=== PATIENT | female | born 1995 | race Caucasian/White ===

== ENCOUNTER 2017-10-15 17:07 | Outpatient (CLI) | END 2017-10-15 18:12 | disposition home or self-care (01) ==

== ENCOUNTER 2017-11-05 17:35 | Outpatient (CLI) | END 2017-11-05 21:37 | disposition home or self-care (01) ==

== ENCOUNTER 2017-11-09 12:40 | Outpatient (CLI) | END 2017-11-09 14:30 | disposition home or self-care (01) ==

== ENCOUNTER 2017-11-12 16:12 | Inpatient (IN) | END 2017-11-16 15:49 | disposition home or self-care (01) | DRG 775 ==

== ENCOUNTER 2018-09-26 23:19 | Emergency (ER) | payer OTHER ==
[~2018-09-26] VITALS: Ht 172.7 cm; Wt 75.9 kg
[~2018-09-26 23:19] MED LIST: IBUP-1542 PO; PNV11TAB PO; PREN1TAB79 PO
[2018-09-26 23:24] VITALS: Ht 172.7 cm; Wt 75.9 kg
[2018-09-27] MEDS ORDERED: ACETAMINOPHEN 500 MG TAB PO STA (02:13)
[2018-09-27] MEDS ORDERED: CEPH-443 PO (02:17)
[2018-09-27] MEDS ORDERED: ACET500C5 PO (02:18)
[2018-09-27] MEDS ORDERED: IBUP-1542 PO (02:18)
[2018-09-27] MEDS ORDERED: LIDOCAINE 1% (MPF) 5 ML VIAL INFIL ONE (02:30)
[2018-09-27] MEDS ORDERED: CEFTRIAXONE 1 GM INJ IM ONE (02:30)
[2018-09-27 03:22] VITALS: BP 106/76; PULSE 101; RESP 16
--- NOTE | 2018-09-29 14:15 | ERD ---
ER Documentation Chief Complaint Chief Complaint R BREAST PAIN X'S 2 DAYS; HX OF MASTITIS HPI History of Present Illness: 30-year-old female who denies a past medical history coming in today with complaint of right breast pain for 2 days. Patient reports diagnosis of mastitis in the past. Patient is still currently breast-feedinG. At home pharmacological/nonpharmacological treatment for symptoms: Denies Denies social concerns; Denies recent foreign travel ROS All systems reviewed and are negative except as per history of present illness. Medications Home Meds Active Scripts Ibuprofen* (Motrin*) 600 Mg Tab, 600 MG PO Q6H PRN for PAIN AND/OR INFLAMMATION, #30 TAB Prov:MORGAN BELLE V [employer] 09/27/18 Acetaminophen* (Tylophen*) 500 Mg Capsule, 2 CAP PO Q6H PRN for PAIN AND OR ELEVATED TEMP, #30 CAP Prov:MORGAN BELLE V [employer] 09/27/18 Cephalexin* (Keflex*) 500 Mg Capsule, 500 MG PO QID for MASTITIS for 10 Days, CAP Prov:MORGAN BELLE NP 09/27/18 Ibuprofen* (Ibuprofen*) 600 Mg Tablet, 600 MG PO Q6, #60 TAB 0 Refills Prov:PARKER RUIZ MD 11/15/17 Reported Medications [id number] ( 19) 1 Each Tablet, 1 TAB PO DAILY, TAB 11/09/17 Vit W-Ca,Fe,FA(<1 mg) ( Vitamins) 1 Each Tablet, 1 EACH PO DAILY, TAB 11/05/17 Allergies Allergies: Coded Allergies: No Known Allergy (Unverified , 10/15/17) PMhx/Soc Medical and Surgical Hx: pt denies Medical Hx, pt denies Surgical Hx Hx Alcohol Use: No Hx Substance Use: No Hx Tobacco Use: No Smoking Status: Never smoker FmHx Family History: No diabetes, No coronary disease Physical Exam Vitals Vital Signs Date Temp Pulse Resp B/P (MAP) Pulse Ox O2 O2 Flow FiO2 Time Delivery Rate 09/27/18 98.6 101 16 106/76 99 Room Air 03:22 (86) 09/26/18 99.3 101 18 130/85 99 23:24 (100) Physical Exam Const: No acute distress, afebrile Head: Atraumatic Eyes: Normal Conjunctiva ENT: Normal External Ears, Nose and Mouth. Neck: Full range of motion. No meningismus. Resp: Clear to auscultation bilaterally Cardio: Regular rate and rhythm, no murmurs Abd: Soft, non tender, non distended. No guarding, no masses, no rigidity Skin: No petechiae or rashes Back: No midline or flank tenderness Ext: No cyanosis, or edema Neur: Awake and alert x3, speaking in clear sentences, no focal deficits or facial asymmetry Psych: Normal Mood and Affect Breasts: Erythema noted to right breast AT 9 o'clock. No palpable abscesses or masses. No skin changes. No nipple inversion. Results 24 hrs Current Medications Medications Dose Sig/Ana M Start Time Status Last (Trade) Ordered Route PRN Stop Time Admin Dose Reason Admin 1,000 mg ONCE STAT 09/27/18 DC 09/27/18 Acetaminophen PO 02:13 09/27/18 02:37 (Tylenol 02:15 Tab) Ceftriaxone 1 gm ONCE ONCE 09/27/18 DC 09/27/18 Sodium IM 02:30 09/27/18 02:37 (Rocephin) 02:31 Lidocaine 2.1 ml ONCE ONCE 09/27/18 DC 09/27/18 (Xylocaine INFIL 02:30 09/27/18 02:37 1% (Mpf)) 02:31 Procedures/MDM ED COURSE: ED course includes a thorough examination and history. The patient was stable throughout ED course. I kept the patient and/or family informed of laboratory and diagnostic imaging results throughout the ED course. LABS: None MEDICATIONS GIVEN IN ER: Ceftriaxone, acetaminophen Patient tolerated medication well with no adverse reactions. Patient reported improvement in pain. DIAGNOSTIC IMAGING: None. PROCEDURES: None. MEDICAL DECISION MAKING: Low suspicion for life-threatening medical emergency. Otherwise healthy patient presenting with constellation of symptoms likely representing right-sided mastitis as characterized by history, physical exam findings. Patient reassessment @ 0240: Patient medicated as ordered. Patient hemodynamically stable. No respiratory distress, otherwise relatively well appearing and nontoxic. Disposition given. Patient educated on diagnoses, prescriptions, follow-up care, return precautions. Strict return precautions given for worsening condition; questions answered discharge. Patient verbalizes understanding of discharge instructions. PRESCRIPTIONS FOR HOME: Ibuprofen, acetaminophen, Keflex DISPOSITION: DISCHARGE At this time, patient is stable for discharge and outpatient management. I have instructed the patient to follow-up with his/her primary care physician in 1-2 days. I have discussed with the patient the possibility of needing to see a specialist for further workup and imaging studies if symptoms persist. I have instructed the patient to promptly return to the ER for any new or worsening symptoms including increased pain, fever, nausea, vomiting, weakness or LOC. The patient and/or family expressed understanding of and agreement with this plan. All questions were answered. Home care instructions were provided. DISCLAIMER: Inadvertent spelling and grammatical errors are likely due to EHR/dictation software use and do not reflect on the overall quality of patient care. Also, please note that the electronic time recorded on this note does not necessarily reflect the actual time of the patient encounter. Departure Diagnosis: Primary Impression: Mastitis, right, acute Condition: Stable Patient Instructions: Mastitis Referrals: [facility] YOU HAVE RECEIVED A MEDICAL SCREENING EXAM AND THE RESULTS INDICATE THAT YOU DO NOT HAVE A CONDITION THAT REQUIRES URGENT TREATMENT IN THE EMERGENCY DEPARTMENT. FURTHER EVALUATION AND TREATMENT OF YOUR CONDITION CAN WAIT UNTIL YOU ARE SEEN IN YOUR DOCTORS OFFICE WITHIN THE NEXT 1-2 DAYS. IT IS YOUR RESPONSIBILITY TO MAKE AN APPOINTMENT FOR FOLOW-UP CARE. IF YOU HAVE A PRIMARY DOCTOR --you should call your primary doctor and schedule an appointment IF YOU DO NOT HAVE A PRIMARY DOCTOR YOU CAN CALL OUR PHYSICIAN REFERRAL HOTLINE AT IF YOU CAN NOT AFFORD TO SEE A PHYSICIAN YOU CAN CHOSE FROM THE FOLLOWING [facility] CLINICS [facility] [address] [facility]. [facility] [address] [facility] [place] [address] [facility] [facility] [address] [facility]. [facility] [address] [facility]. [facility]. [address] [facility] YOU HAVE RECEIVED A MEDICAL SCREENING EXAM AND THE RESULTS INDICATE THAT YOU DO NOT HAVE A CONDITION THAT REQUIRES URGENT TREATMENT IN THE EMERGENCY DEPARTMENT. FURTHER EVALUATION AND TREATMENT OF YOUR CONDITION CAN WAIT UNTIL YOU ARE SEEN IN YOUR DOCTORS OFFICE WITHIN THE NEXT 1-2 DAYS. IT IS YOUR RESPONSIBILITY TO MAKE AN APPOINTMENT FOR FOLOW-UP CARE. IF YOU HAVE A PRIMARY DOCTOR --you should call your primary doctor and schedule and appointment IF YOU DO NOT HAVE A PRIMARY DOCTOR YOU CAN CALL OUR PHYSICIAN REFERRAL HOTLINE AT . IF YOU CAN NOT AFFORD TO SEE A PHYSICIAN YOU CAN CHOSE FROM THE FOLLOWING [facility] INSTITUTIONS: [facility] [address] [place] [address] [facility] [address] [place] [address] [facility] + [facility] [address] [place] [address] Additional Instructions: Thank you very much for allowing us to participate in your care. Your health and safety is our top priority at [facility]. It is important to read all discharge instructions and education provided in your discharge packet. Call your primary care doctor TOMORROW for an appointment during the next 2-4 days and bring all the information and medications prescribed. Have prescriptions filled and follow precisely the directions on the label. -Cephalexin is an antibiotic; take this medication every day as listed on your prescription. You must complete the entire course of treatment that is listed on your prescription this is very important because it takes a certain number of days to kill the bacteria that is causing the infection. --Ibuprofen is a medication that will help with pain/inflammation. At the dosage of 600 to 800 mg, this will help with inflammation/swelling. Take this medication as prescribed. --Acetaminophen as a medication for pain and/or fever. Take this medication as needed for mild to moderate pain. This medication will not cause drowsiness. If the symptoms get worse and your provider is unavailable, return to the Emergency Department immediately. MORGAN BELLE NP Sep 29, 2018 14:15
== END 2018-09-27 03:22 | disposition home or self-care (01) ==
LOC: FTE 23:19
DX: N61.0 Mastitis without abscess (principal)
CPT/HCPCS: 96372; J0696; Z7502; Z7610